=== PATIENT | male | born 1975 | race Caucasian/White ===

== ENCOUNTER 2024-06-26 13:30 | Emergency (ER) | payer BC, SELFPAY ==
[2024-06-26 13:35] VITALS: BP 154/117
--- NOTE | 2024-06-26 13:35 | ED.GENMED ---
ED Provider Triage
<Marlin Arora STATE COMPTROLLER - Last Filed: 06/26/24 13:40>
-
Patient seen by provider in Triage?: Seen in Triage
Attestation: A medical screening examination has been initiated by a qualified medical provider. Based on the assessment performed at this time, it has been determined that an emergent medical condition may exist and the patient has been informed
that further medical evaluation and possible additional diagnostic testing may be needed.
HPI: This is a medical evaluation conducted in person to initiate diagnostic evaluation and provide initial therapeutics. Please see further documentation by the treating clinician.
Took Trimix last 8:30 p.m. has had erection since, denies pain, becoming uncomfortable Tried working out, took Sudafed pills with no relief. Denies trouble urinating.
GENERAL: Alert , in no apparent distress
EYE: No visual abnormalities.
ENT: No visible abnormalities.
LUNGS: No acute respiratory distress
NEUROLOGICAL: Alert and oriented
SKIN: Skin intact. No visible changes.
MUSCULOSKELETAL: Moving extremities normally
PSYCH: Normal and appropriate interaction.
History of Present Illness
<Marlin Arora STATE COMPTROLLER - Last Filed: 06/26/24 13:40>
General
Chief Complaint: Male Genito-Urinary Symptoms
Time Seen by Provider: 06/26/24 13:34
<Daniel Myles PA-C - Last Filed: 06/26/24 18:23>
History of Present Illness
History of Present Illness:
48-year-old male presents the emergency department for evaluation of a physical. He injected Trimix last night at around 8 PM and has had no relief despite ice and attempting to inject phenylephrine into the base of the penis this morning.
No underlying bleeding disorders
Past History
<Marlin Arora, STATE COMPTROLLER - Last Filed: 06/26/24 13:40>
Past History
ED Past Medical History: None
ED Past Surgical History: None
Social History
Tobacco: Non-smoker
Alcohol: Occasional
Drug: None
Personal:
Living: with family
Employment: Employed
Review of Systems
<Daniel Myles PA-C - Last Filed: 06/26/24 18:23>
Review of Systems
Allergies reviewed?: Yes
All Other Systems: ROS reviewed and negative except as documented in HPI and ROS
Phy Exam
<Daniel Myles PA-C - Last Filed: 06/26/24 18:23>
Physical Exam
Physical Exam:
GEN: Well appearing, NAD, WDWN
HEENT: Oral mucosa moist, no scleral icterus
Cardiac: Regular rate
Lung: No respiratory distress, no tachypnea
: Firm erection compatible with priapism, no evidence of glans vascular compromise
MSK: No gross deformity or injuries
Skin: Good color, no pallor or jaundice, no rashes
Neuro: AO x3, moves all extremities freely
Psych: Calm, cooperative
Course
<Marlin Arora, STATE COMPTROLLER - Last Filed: 06/26/24 13:40>
Orders/Labs/Results
Orders:
Orders
06/26/24 15:34
Phenylephrine [Mike-Synephrine] 5 mg 0.9% Sodium Chloride 50 ml [Nss] 19.5 ml Syringe [Syringe Non-Pump] 0 ml INTRACAVER ONCE PRN
06/26/24 16:14
Terbutaline Sulfate [Brethine] 5 mg PO NOW STA
Vital Signs
Initial and Last Documented VS:
Initial Vital Signs
Temp Pulse Resp BP Pulse Ox
97.8 F 110 16 154/117 98
06/26/24 13:35 06/26/24 13:35 06/26/24 13:35 06/26/24 13:35 06/26/24 13:35
Last Documented Vital Signs
Temp Pulse Resp BP Pulse Ox
97.8 F 86 18 122/80 98
06/26/24 13:35 06/26/24 16:32 06/26/24 16:32 06/26/24 16:32 06/26/24 16:32
<Daniel Myles PA-C - Last Filed: 06/26/24 18:23>
Orders/Labs/Results
Orders:
Orders
06/26/24 15:34
Phenylephrine [Mike-Synephrine] 5 mg 0.9% Sodium Chloride 50 ml [Nss] 19.5 ml Syringe [Syringe Non-Pump] 0 ml INTRACAVER ONCE PRN
06/26/24 16:14
Terbutaline Sulfate [Brethine] 5 mg PO NOW STA
Vital Signs
Initial and Last Documented VS:
Initial Vital Signs
Temp Pulse Resp BP Pulse Ox
97.8 F 110 16 154/117 98
06/26/24 13:35 06/26/24 13:35 06/26/24 13:35 06/26/24 13:35 06/26/24 13:35
Last Documented Vital Signs
Temp Pulse Resp BP Pulse Ox
97.8 F 86 18 122/80 98
06/26/24 13:35 06/26/24 16:32 06/26/24 16:32 06/26/24 16:32 06/26/24 16:32
Procedures
<Daniel Myles PA-C - Last Filed: 06/26/24 18:23>
Phenylephrine for Priapism
Date: 06/26/24
Time: 15:55
Dose of Phenylephrine in mc
Patient tolerated?: Yes
Comment: Pt prepped in sterile fashion, skin prepped w/ betadine. Penile block performed w/ 1% lidocaine bilaterally. 18g needle inserted into the base of the lateral R penile shaft, approx 150cc dark blood aspirated with improvement in priapism.
500mcg phenylephrine then injected and pressure dressing was applied. Small superficial hematoma noted at injection site after observation
<Daniel Myles PA-C - Last Filed: 06/26/24 18:23>
MDM/Problems Addressed
MDM/Problems Addressed:
Priapism improved after treatment. 5 mg of terbutaline given per urology recommendations. Was advised to discontinue use of Trimix in the future
<Daniel Myles PA-C - Last Filed: 06/26/24 18:23>
*Critical Care Note
Total Time (30-74mins, 75-104mins- exclusive of procedures): Not Applicable
ED Attending Note
<Marlin Arora NP - Last Filed: 06/26/24 13:40>
-
Portions of this chart may have been created with voice recognition software.� Occasional wrong word or��sound alike� substitutions may have occurred due to the inherent limitations of voice recognition software.
Discharge Plan
Departure
Patient Disposition: Home (Routine Discharge)
Date of Disposition: 06/26/24
Time of Disposition: 17:06
Patient with high blood pressure during this ER visit?: No
Discharge Problem:
Priapism
Instructions: Priapism
Referrals:
Jeff Parker DO [Family Provider] -
Interventions
Interventions:
*Risk Screen - Suicide Last Done: 06/26/24 13:35
*General Assessment Last Done: 06/26/24 13:35
*Neglect/Abuse Screening Last Done: 06/26/24 13:35
ED- Fall Risk Assessment Last Done: 06/26/24 14:53
*ED COVID-19 Vaccine History Last Done: 06/26/24 14:53
*Nursing Disposition Last Done: 06/26/24 17:09
ED-Male Genitourinary Assessment Last Done: 06/26/24 14:53
Discharge Date and Time
Discharge Date/Time: 06/26/24 17:10
Print Language: ITALIAN
[2024-06-26 15:04] VITALS: BP 193/101
[2024-06-26 15:07] VITALS: BP 193/101
[2024-06-26] MEDS: BRETHINE 5 MG PO (16:28)
[2024-06-26 16:32] VITALS: BP 122/80
== END 2024-06-26 17:10 | disposition home or self-care (01) ==
LOC: EMR 13:30
PROVIDERS: EMERGENCY PHYSICIAN Emergency Medicine; FAMILY PHYSICIAN Family Medicine
DX: N48.30 Priapism, unspecified (principal)
CPT/HCPCS: 54220; 99283